=== PATIENT | female | born 1950 | race American Indian/Alaskan Native ===

== ENCOUNTER 2017-06-24 11:00 | Day surgery (SDC) | payer MEDICARE ==
[2017-06-24] MEDS ORDERED: NACL 0.9% 1 ML, VANCOMYCIN VIAL 1,000 MG IR ONE (11:29)
[2017-06-24] MEDS ORDERED: NACL 0.45% 1000 ML 1,000 ML IV SCH (12:00)
[2017-06-24] MEDS ORDERED: XYLOCAINE 1% 20 mL ONE (12:56)
[2017-06-24] MEDS ORDERED: NACL 0.9% 0 ML IR ONE (12:56)
[2017-06-24] MEDS ORDERED: MARCAINE 0.5% 0 ML INFILTRATI ONE (12:57)
[2017-06-24] MEDS ORDERED: ANCEF/STERILE WATER 2 GM/20 ML 0 GM/0 ML SYRINGE IV ONE (12:57)
[2017-06-24] MEDS ORDERED: SUBLIMAZE ONE (12:58)
[2017-06-24] MEDS ORDERED: VERSED ONE (12:58)
== END 2017-06-24 11:01 | disposition home or self-care (01) ==
LOC: CATHLABREC 11:00
PROVIDERS: ATTEND Internal Medicine Cardiovascular Disease
DX: Z53.8 Procedure and treatment not carried out for other reasons (principal); Z95.810 Presence of automatic (implantable) cardiac defibrillator; E78.5 Hyperlipidemia, unspecified
CPT/HCPCS: J0690; J2250; J3010

== ENCOUNTER 2017-07-15 11:04 | Day surgery (SDC) | payer MEDICARE ==
[2017-07-15] MEDS ORDERED: NACL 0.9% 1,000 ML, VANCOMYCIN VIAL 1,000 MG IR ONE (11:37)
--- NOTE | 2017-07-15 12:08 | Anesthesia Day of Surgery ---
Anesthesia Day of Surgery - Day of Surgery Patient Examined: Yes Patient H&P Reviewed: Yes Patient is NPO: Yes
--- NOTE | 2017-07-15 12:08 | Anesthesia Consultation ---
Anesthesia Consult and Med Hx Date of service: 07/15/17 - Airway Anesthetic Teeth Evaluation: Good ROM Head & Neck: Adequate Mental/Hyoid Distance: Adequate Mallampati Class: Class II Intubation Access Assessment: Probably Good - Pulmonary Exam CTA: Yes - Cardiac Exam Cardiac Exam: RRR - Pre-Operative Health Status ASA Pre-Surgery Classification: ASA4 Proposed Anesthetic Plan: MAC - Cardiovascular System Hx Hypertension: Yes Hx Coronary Artery Disease: Yes Hx Internal Defibrillator: Yes
[2017-07-15 12:09] LABS: Basophils % (Auto) 0.8 % (0.0-1.8); Eosinophils % (Auto) 0.2 % (0.0-4.3); Hematocrit 35.9 % (30.3-42.9); Hemoglobin 11.9 gm/dl (10.1-14.3); Mean Corpuscular HGB Conc 33 % (30-34); Mean Corpuscular Hemoglobin 31 pg (28-32); Mean Corpuscular Volume 94 fl (79-97); Platelet Count 246 K/mm3 (140-440); Red Blood Count 3.81 M/mm3 (3.65-5.03); Red Cell Distribution Width 15.1 % (13.2-15.2); White Blood Count 6.2 K/mm3 (4.5-11.0)
[2017-07-15 12:23] LABS: INR 0.91 (0.87-1.13)
[2017-07-15 12:24] LABS: Partial Thromboplastin Time 31.7 Sec. (24.2-36.6)
[2017-07-15 12:27] LABS: Alanine Aminotransferase 6 units/L (7-56); Albumin 3.9 g/dL (3.9-5); Albumin/Globulin Ratio 1.3 %; Alkaline Phosphatase 59 units/L (35-129); Anion Gap 18 mmol/L; BUN/Creatinine Ratio 13; Blood Urea Nitrogen 12 mg/dL (7-17); Carbon Dioxide 22 mmol/L (22-30); Chloride 108.2 mmol/L (98-107); Glucose 85 mg/dL (65-100); Potassium 4.3 mmol/L (3.6-5.0); Sodium 144 mmol/L (137-145); Total Protein 6.9 g/dL (6.3-8.2)
[2017-07-15] MEDS ORDERED: NACL 0.9% 500 ML IR ONE (12:52)
[2017-07-15] MEDS ORDERED: XYLOCAINE 1% 20 mL ONE (12:53)
[2017-07-15] MEDS ORDERED: MARCAINE 0.5% 60 ML INFILTRATI ONE (12:53)
[2017-07-15] MEDS ORDERED: ANCEF/STERILE WATER 2 GM/20 ML 2 GM/20 ML SYRINGE IV ONE (12:53)
[2017-07-15] MEDS ORDERED: NACL 0.45% 1000 ML 1,000 ML IV SCH (13:00)
[2017-07-15] MEDS ORDERED: VERSED ONE (13:21)
[2017-07-15] MEDS ORDERED: DIPRIVAN 10 MG/ML IV ONE ×3 (13:21→13:38)
[2017-07-15] MEDS ORDERED: XYLOCAINE MPF 2% ONE (13:23)
[2017-07-15] MEDS ORDERED: VERSED IV ONE (13:38)
--- NOTE | 2017-07-15 15:45 | Short Stay Summary ---
Short Stay Documentation Date of service: 07/15/17 Narrative H&P: See outpatient H and P - History H&P: obtained from office - Allergies and Medications Current Medications: Allergies No Known Allergies Allergy (Verified 07/15/17 11:37) Home Medications Medication Instructions Recorded Confirmed Last Taken Type Aspirin [Lo-Dose Aspirin EC] 81 mg PO DAILY 07/15/17 07/15/17 07/14/17 History Carvedilol [Coreg] 3.125 mg PO DAILY 07/15/17 07/15/17 07/14/17 History Digoxin [Digoxin] 125 mcg PO DAILY 07/15/17 07/15/17 07/14/17 History Hydrochlorothiazide [HCTZ] 25 mg PO DAILY 07/15/17 07/15/17 07/14/17 History Lisinopril [Lisinopril] 20 mg PO DAILY 07/15/17 07/15/17 07/14/17 History Nitroglycerin [Nitro Dur] 0.2 mg TD QDAY 07/15/17 07/15/17 2 Months Ago History ~05/15/17 Nitroglycerin [Nitrostat] 0.4 mg SL Q5M PRN 07/15/17 07/15/17 3 Weeks Ago History ~06/24/17 Ranitidine HCl [Zantac 150 MG TAB] 150 mg PO DAILY 07/15/17 07/15/17 07/14/17 History Ranolazine [Ranexa] 1,000 mg PO DAILY 07/15/17 07/15/17 07/14/17 History Simvastatin [Simvastatin] 80 mg PO DAILY 07/15/17 07/15/17 07/14/17 History Spironolactone [Spironolactone] 25 mg PO DAILY 07/15/17 07/15/17 07/14/17 History Warfarin [Coumadin] 5 mg PO QDAY 07/15/17 07/15/17 3 Weeks Ago History ~06/24/17 Active Medications Sodium Chloride (Nacl 0.45% 1000 Ml) 1,000 mls @ 50 mls/hr IV DIRECT MANOLO Last Admin: 07/15/17 12:58 Dose: 50 mls/hr - Brief post op/procedure progress note Date of procedure: 07/15/17 Procedure: ICD Generator replacement - see procedure note. - Hospital course Hospital course: Stable observation after procedure - Disposition Condition at discharge: Good Disposition: DC-01 TO HOME OR SELFCARE Short Stay Discharge Plan Activity: advance as tolerated Diet: low fat, low cholesterol Wound: open to air Follow up with: KATHY CARO MD [Primary Care Provider] - 7 Days RADHA RUIZ MD [Staff Physician] - 7 Days Prescriptions: oxyCODONE /ACETAMINOPHEN [Percocet 5/325] 1 tab PO Q6HR PRN #10 tablet PRN Reason: Pain
[2017-07-15 16:56] VITALS: BP 121/53
== END 2017-07-15 17:30 | disposition home or self-care (01) ==
LOC: CATHLABREC 11:04
PROVIDERS: ATTEND Internal Medicine Cardiovascular Disease
DX: I25.5 Ischemic cardiomyopathy (principal); I10 Essential (primary) hypertension; I48.0 Paroxysmal atrial fibrillation; I25.10 Atherosclerotic heart disease of native coronary artery without angina pectoris; E78.00 Pure hypercholesterolemia, unspecified; M19.90 Unspecified osteoarthritis, unspecified site; Z79.01 Long term (current) use of anticoagulants; Z79.82 Long term (current) use of aspirin; Z79.899 Other long term (current) drug therapy
CPT/HCPCS: 33262; 36415; 80048; 80053; 85025; 85610; 85730; 93005; 93010; 99156; 99157; C1722; C1781; J0690; J2250; J2704; J3370

== ENCOUNTER 2019-08-12 07:52 | Observation (INO) | payer MEDICARE ==
[2019-08-12] MEDS ORDERED: ASPIRIN EC 325 MG TAB PO ONE (08:17)
[2019-08-12 08:39] LABS: Basophils % (Auto) 0.5 % (0.0-1.8); Eosinophils % (Auto) 0.4 % (0.0-4.3); Hematocrit 37.1 % (30.3-42.9); Hemoglobin 12.6 gm/dl (10.1-14.3); Lymphocytes # (Auto) 2.2 K/mm3 (1.2-5.4); Lymphocytes % (Auto) 41.6 % (13.4-35.0); Mean Corpuscular HGB Conc 34 % (30-34); Mean Corpuscular Volume 95 fl (79-97); Monocytes # (Auto) 0.5 K/mm3 (0.0-0.8); Monocytes % (Auto) 9.3 % (0.0-7.3); Platelet Count 259 K/mm3 (140-440); Red Cell Distribution Width 15.1 % (13.2-15.2)
[2019-08-12 08:50] LABS: BUN/Creatinine Ratio 13; Blood Urea Nitrogen 13 mg/dL (7-17); Calcium 9.6 mg/dL (8.4-10.2); Hemolysis Index 5
[2019-08-12 08:51] LABS: INR 0.93 (0.87-1.13)
[2019-08-12 08:52] LABS: Partial Thromboplastin Time 32.2 Sec. (24.2-36.6)
[2019-08-12] MEDS: SODIUM CHLORIDE 0.9% 500 ML 500 ML IV SCH ×3 (09:07→10:25)
[2019-08-12] MEDS: fentaNYL 100 MCG/2 ML INJ ONE ×2 (09:46→10:27)
[2019-08-12] MEDS: LIDOCAINE (2%) 20 MG/1 ML VIAL 20 ML MDV INFILTRATI ONE ×2 (09:46→10:30)
[2019-08-12] MEDS: MIDAZOLAM 2 MG/2 ML INJ ONE ×2 (09:46→10:27)
[2019-08-12] MEDS: HEPARIN 10,000 UNITS/10 ML VIAL ONE ×3 (09:47→10:42)
[2019-08-12] MEDS: VERAPAMIL 5 MG/2 ML INJ ONE ×2 (09:47→10:31)
[2019-08-12] MEDS: HEPARIN/NS 5000 UNIT/500ML 1,000 ML IR ONE ×2 (09:48→10:25)
[2019-08-12] MEDS: NITROGLYCERIN SYRINGE 3 ML ONE ×3 (09:48→10:31)
[2019-08-12] MEDS ORDERED: CLOPIDOGREL 75 MG TAB ONE (10:57)
[2019-08-12] MEDS ORDERED: ALUM-MAG HYDROXIDE-SIMETHICONE 200-200-20MG/5ML ORAL LIQD 30 ML ONE (10:57)
[2019-08-12] MEDS ORDERED: ONDANSETRON 4 MG/2 ML INJ IV PRN (11:15)
[2019-08-12] MEDS ORDERED: SODIUM CHLORIDE 0.9% 1000 ML 1,000 ML IV SCH (11:15)
[2019-08-12] MEDS ORDERED: ACETAMINOPHEN 325 MG TAB PO PRN (11:15)
[2019-08-12] MEDS ORDERED: traMADol 50 MG TAB PO PRN (11:15)
[2019-08-12] MEDS ORDERED: SENNOSIDES 8.6 MG TAB PO PRN (11:15)
--- NOTE | 2019-08-12 11:38 | Cardiac Catherization Report ---
CARDIAC CATHETERIZATION AND CORONARY ANGIOPLASTY REPORT REASON FOR PROCEDURE: Unstable angina. PROCEDURES: 1. Left heart catheterization. 2. Selective left and right coronary angiography. 3. Left ventricular angiography. 4. Coronary stenting of the mid left anterior descending artery. 5. Sedation time start at 10:25, end 10:55. The patient was prepped and draped in a sterile fashion after informed consent. The right radial cath site was prepped and draped after a negative Chris's test. The right radial artery was entered using Seldinger technique followed by placement of a 6-Hungarian hydrophilic sheath. Routine radial cocktail was administered via the sheath. Selective left and right coronary angiography was performed using a #3.5 left Matthieu and #4 right Matthieu. The right Matthieu was used for left ventricular angiography. The angiograms were reviewed. CORONARY ANGIOGRAPHY: There was qbitgdai-mt-bdrury diffuse coronary calcification. The left main coronary artery contained mild distal narrowing, less than 10% luminal stenosis in its distal segment. The left anterior descending artery was a large caliber vessel that was notable for a long stent extending through its proximal to mid segment. There was a focal, greater than 95% stenosis of the mid LAD, within the distal third of the stented segment. This was consistent with a focal in-stent restenosis. Following that, there was mild diffuse atherosclerosis of the rest of the mid and distal segments of the LAD. A small caliber, first obtuse marginal branch of the circumflex artery contained a 90% stenosis of its mid segment. This was a very small caliber vessel, less than 2 to 2.25 mm diameter. Following that, the circumflex was notably a small caliber system that contained diffuse adcf-tb-kjeixson atherosclerosis. The right coronary artery was a large dominant system. There was diffuse mild atherosclerosis of the proximal and mid segments. The distal AV groove segment was notable for a 50% stenosis midway between the acute margin and the posterior descending branch. The left ventricle was severely dilated, with severe left ventricular systolic dysfunction, diffuse hypokinesis, left ventricular ejection fraction estimated at 15%. CORONARY ANGIOPLASTY: After review of the angiograms, ad hoc coronary intervention to the mid LAD in-stent restenosis was recommended. We exchanged for a #3.0 XB guiding catheter and advanced to the left coronary ostium. A 0.014 inch Injection Maintenance Technician 50 guidewire was introduced into the LAD, across the lesional segment. In a primary stenting maneuver, we deployed a 3.5 x 8 mm Resolute drug-eluting stent and inflated to optimal pressures. This stent was postdilated to a 4.0 diameter. Following stenting, there was an excellent angiographic result, 0 residual stenosis and DEBI 3 flow down the LAD. The patient tolerated the procedure and there were no complications. The wires and the catheters were removed, sheath removed, and hemostasis achieved using a TR band. The patient was returned to the postprocedure unit in stable condition. CONCLUSION: 1. Multivessel coronary artery disease. 2. Severe in-stent restenosis of the mid left anterior descending artery. 3. Severe ischemic cardiomyopathy, ejection fraction 10-15%. 4. Successful ad hoc angioplasty and stenting of the LAD, greater than 95% stenosis was reduced to a 0% residual, excellent angiographic result. [facility]# [id number] YADIRA/ADONAY
[2019-08-12] MEDS: SPIRONOLACTONE 25 MG TAB PO SCH (12:07)
[2019-08-12] MEDS: TORSEMIDE 10 MG TAB PO SCH (12:08)
[2019-08-12] MEDS: LISINOPRIL 20 MG TAB PO SCH (12:10)
[2019-08-12] MEDS: NITROGLYCERIN 0.4 MG PATCH 24HR TD SCH (12:19)
--- NOTE | 2019-08-12 12:39 | Event Note ---
Date: 08/12/19 Patient presented for physician cardiac catheterization, we found a 95% focal in-stent restenosis of the mid LAD stent. We performed additional stenting with a 3.5 mm drug-eluting stent, excellent angiographic result. The patient will be admitted for overnight post PCI observation, anticipated discharge tomorrow morning.
[2019-08-12] MEDS ORDERED: FAMOTIDINE 20 MG TAB PO SCH (22:00)
[2019-08-12] MEDS ORDERED: NON-FORMULARY EACH (Ranitidine Hcl [Zantac] 150 MG) PO SCH (22:00)
[2019-08-12] MEDS ORDERED: NON-FORMULARY EACH (Atorvastatin [Lipitor] 80 MG) PO SCH (22:00)
[2019-08-12] MEDS: carvediloL 3.125 MG TAB PO SCH (22:10)
[2019-08-12] MEDS: busPIRone 10 MG TAB PO SCH (22:15)
--- NOTE | 2019-08-13 05:03 | XRay Report ---
CHEST 1 VIEW, 08/13/2019 3:50 AM CLINICAL INFORMATION/INDICATION: Post PCI COMPARISON: None FINDINGS: SUPPORT DEVICES: Single lead cardiac pacing device is present. HEART: The cardiac silhouette is normal in size. LUNGS/PLEURA: The lungs are clear of focal airspace disease or significant pleural effusion. ADDITIONAL FINDINGS: No additional acute findings. IMPRESSION: 1. No evidence of acute cardiopulmonary process. Signer Name: Gabrielle Monroy MD Signed: 08/13/2019 4:59 AM Workstation Name: [id number]
[2019-08-13 06:19] LABS: Basophils % (Auto) 0.8 % (0.0-1.8); Eosinophils % (Auto) 0.4 % (0.0-4.3); Hematocrit 34.4 % (30.3-42.9); Hemoglobin 11.7 gm/dl (10.1-14.3); Mean Corpuscular HGB Conc 34 % (30-34); Mean Corpuscular Volume 95 fl (79-97); Monocytes # (Auto) 0.5 K/mm3 (0.0-0.8); Monocytes % (Auto) 10.9 % (0.0-7.3); Platelet Count 233 K/mm3 (140-440); Red Blood Count 3.61 M/mm3 (3.65-5.03); Red Cell Distribution Width 14.5 % (13.2-15.2)
[2019-08-13 06:32] LABS: Creatine Kinase MB 1.3 ng/mL (0.0-4.0)
[2019-08-13 06:35] LABS: BUN/Creatinine Ratio 12; Blood Urea Nitrogen 11 mg/dL (7-17); Calcium 9.3 mg/dL (8.4-10.2); Hemolysis Index 15
--- NOTE | 2019-08-13 09:48 | Short Stay Summary ---
Short Stay Documentation Date of service: 08/13/19 - History H&P: obtained from office - Allergies and Medications Current Medications: Allergies No Known Allergies Allergy (Verified 07/15/17 11:37) Home Medications Medication Instructions Recorded Confirmed Last Taken Type Aspirin [Lo-Dose Aspirin EC] 81 mg PO DAILY 07/15/17 08/12/19 08/11/19 History 81 mg Nitroglycerin [Nitrostat] 0.4 mg SL Q5M PRN 07/15/17 08/12/19 08/11/19 History 0.4mg Ranolazine [Ranexa] 1,000 mg PO DAILY 07/15/17 08/12/19 08/11/19 History 1000 mg Spironolactone 25 mg PO DAILY 07/15/17 08/12/19 08/11/19 History 25 mg carvediloL [Coreg] 6.25 mg PO BID 07/15/17 08/12/19 08/11/19 History 6.25 lisinopriL [Lisinopril] 10 mg PO DAILY 07/15/17 08/12/19 08/11/19 History 10 mg raNITIdine HCl [Zantac] 150 mg PO HS 07/15/17 08/12/19 08/11/19 History 150 mg Atorvastatin [Lipitor] 80 mg PO HS 08/12/19 08/12/19 08/11/19 History 80 mg Clopidogrel [Plavix] 75 mg PO DAILY 08/12/19 08/12/19 08/11/19 History 75 mg Nitroglycerin [Nitro Dur] 0.6 mg TRANSDERMA DAILY 08/12/19 08/12/19 08/12/19 History 0.6mg Torsemide [Demadex] 5 mg PO QDAY 08/12/19 08/12/19 08/11/19 History 5 mg busPIRone [Buspar] 10 mg PO BID 08/12/19 08/12/19 08/11/19 History 10 mg Active Medications Acetaminophen (Tylenol) 650 mg PO Q4H PRN PRN Reason: Pain MILD(1-3)/Fever >100.5/SAAVEDRA Aspirin (Ecotrin) 325 mg PO QDAY [facility] Atorvastatin Calcium (Lipitor) 80 mg PO QHS [facility] Last Admin: 08/12/19 22:09 Dose: 80 mg Documented by: Buspirone HCl (Buspar) 10 mg PO BID [facility] Last Admin: 08/12/19 22:15 Dose: 10 mg Documented by: Carvedilol (Coreg) 6.25 mg PO BID [facility] Last Admin: 08/12/19 22:10 Dose: 6.25 mg Documented by: Clopidogrel Bisulfate (Plavix) 75 mg PO QDAY [facility] Famotidine (Pepcid) 20 mg PO HS [facility] Last Admin: 08/12/19 22:10 Dose: 20 mg Documented by: Lisinopril (Zestril) 10 mg PO DAILY [facility] Last Admin: 08/12/19 12:10 Dose: 10 mg Documented by: Nitroglycerin (Nitro Dur) 0.6 mg TD DAILY [facility] Last Admin: 08/12/19 12:19 Dose: Not Given Documented by: Ondansetron HCl (Zofran) 4 mg IV Q8H PRN PRN Reason: [facility] Pneumococcal Polyvalent Vaccine (Pneumovax 23) 0.5 ml IM .ONCE ONE Stop: 08/13/19 12:01 Ranolazine (Ranexa Er) 1,000 mg PO QDAY [facility] Senna (Senokot) 8.6 mg PO Q12H PRN PRN Reason: Laxative Effect Spironolactone (Aldactone) 25 mg PO DAILY [facility] Last Admin: 08/12/19 12:07 Dose: 25 mg Documented by: Torsemide (Demadex) 5 mg PO QDAY [facility] Last Admin: 08/12/19 12:08 Dose: 5 mg Documented by: Tramadol HCl (Ultram) 50 mg PO Q4H PRN PRN Reason: Pain, Mild (1-3) - Physical exam General appearance: no acute distress HEENT: PERRLA Lungs: Clear to auscultation Heart: Regular rate, Normal S1, Normal S2 - Brief post op/procedure progress note Procedure: Patient presented for outpatient cardiac catheterization. She was found to have a 95% focal in-stent restenosis of the mid LAD stent. We performed additional stenting with a 3.5 mm drug-eluting stent, excellent angiographic result. Condition: stable - Hospital course Hospital course: Stable overnight observation. - Disposition Condition at discharge: Good Disposition: DC-01 TO HOME OR SELFCARE Short Stay Discharge Plan Activity: advance as tolerated Weight Bearing Status: Partial Weight Bearing Diet: low fat, low cholesterol Wound: keep clean and dry Follow up with: KATHY CARO MD [Primary Care Provider] - 7 Days RADHA RUIZ MD [Staff Physician] - 7 Days Forms: CardCath PCI D/C Instructions
[2019-08-13] MEDS ORDERED: CLOPIDOGREL 75 MG TAB PO SCH (10:00)
[2019-08-13] MEDS ORDERED: RANOLAZINE ER 500 MG TAB 12HR PO SCH (10:00)
[2019-08-13] MEDS ORDERED: RANOLAZINE 1000 MG PO SCH (10:00)
[2019-08-13] MEDS ORDERED: ASPIRIN EC 325 MG TAB PO SCH (10:00)
[2019-08-13] MEDS: SPIRONOLACTONE 25 MG TAB PO SCH (10:19)
[2019-08-13] MEDS: TORSEMIDE 10 MG TAB PO SCH (10:19)
[2019-08-13] MEDS: carvediloL 3.125 MG TAB PO SCH (10:20)
[2019-08-13] MEDS: LISINOPRIL 20 MG TAB PO SCH (10:21)
[2019-08-13] MEDS: NITROGLYCERIN 0.4 MG PATCH 24HR TD SCH (10:25)
[2019-08-13] MEDS: busPIRone 10 MG TAB PO SCH (10:43)
[2019-08-13 11:20] VITALS: BP 130/70
[2019-08-13] MEDS ORDERED: PNEUMOCOCCAL 23 Valent 0.5 ML VIAL IM ONE (12:00)
[2019-08-13] MEDS ORDERED: carvediloL 6.25 MG TAB PO SCH (22:00)
== END 2019-08-13 12:45 | disposition home or self-care (01) ==
LOC: CATHLABREC 07:52 → 4A 11:15
PROVIDERS: ADMIT Internal Medicine Cardiovascular Disease; ATTEND Internal Medicine Cardiovascular Disease
DX: I20.0 Unstable angina (principal); Z79.82 Long term (current) use of aspirin; Z79.899 Other long term (current) drug therapy
CPT/HCPCS: 36415; 71045; 80048; 82550; 82553; 84484; 85025; 85347; 85610; 85730; 93005; 93010; 93458; A9270; C1769; C1874; C1887; C1894; C9600; G0378; J1644; J2250; J3010; J7040; 90732; 92928; Q9967